=== PATIENT | male | born 1945 | race Caucasian/White ===

== ENCOUNTER → 2016-07-13 | Outpatient (CLI) | payer MEDICARE | END | disposition home or self-care (01) | LOC: PCVCIMAG 13:43 | PROVIDERS: ATTEND Internal Medicine | DX: I65.23 Occlusion and stenosis of bilateral carotid arteries (principal); I25.10 Atherosclerotic heart disease of native coronary artery without angina pectoris; E78.5 Hyperlipidemia, unspecified; I10 Essential (primary) hypertension | CPT/HCPCS: 80061; 93005; 93880; G0463 ==

== ENCOUNTER → 2016-11-29 | Outpatient (CLI) | payer MEDICARE | END | disposition home or self-care (01) | LOC: PCVCCLINIC 14:09 | PROVIDERS: ATTEND Internal Medicine | DX: I25.10 Atherosclerotic heart disease of native coronary artery without angina pectoris (principal); I10 Essential (primary) hypertension; I65.23 Occlusion and stenosis of bilateral carotid arteries; E78.5 Hyperlipidemia, unspecified; J43.1 Panlobular emphysema; Z88.0 Allergy status to penicillin; Z88.5 Allergy status to narcotic agent; Z88.8 Allergy status to other drugs, medicaments and biological substances; Z79.82 Long term (current) use of aspirin; Z79.899 Other long term (current) drug therapy; Z87.891 Personal history of nicotine dependence | CPT/HCPCS: 80061; 93005; G0463 ==

== ENCOUNTER → 2017-05-23 | Outpatient (CLI) | payer MEDICARE | END | disposition home or self-care (01) | LOC: PCVCIMAG 13:11 | DX: I65.23 Occlusion and stenosis of bilateral carotid arteries (principal); I25.10 Atherosclerotic heart disease of native coronary artery without angina pectoris; I10 Essential (primary) hypertension; E78.5 Hyperlipidemia, unspecified; J43.1 Panlobular emphysema; Z87.891 Personal history of nicotine dependence; Z79.899 Other long term (current) drug therapy; Z88.0 Allergy status to penicillin | CPT/HCPCS: 80061; 93005; 93880; G0463 ==

== ENCOUNTER → 2017-11-22 | Outpatient (CLI) | payer MEDICARE | END | disposition home or self-care (01) | LOC: PCVCCLINIC 13:54 | PROVIDERS: ATTEND Internal Medicine | DX: I25.10 Atherosclerotic heart disease of native coronary artery without angina pectoris (principal); E78.5 Hyperlipidemia, unspecified; I10 Essential (primary) hypertension; I65.23 Occlusion and stenosis of bilateral carotid arteries; J43.1 Panlobular emphysema; Z87.891 Personal history of nicotine dependence; Z79.82 Long term (current) use of aspirin; Z79.899 Other long term (current) drug therapy | CPT/HCPCS: 80061; 93005; G0463 ==

== ENCOUNTER → 2018-05-24 | Outpatient (CLI) | payer MEDICARE ==
--- NOTE | 2018-05-24 11:28 | PCVCIMAG ---
APPROVED REPORT Indications Stenosis History of Smoking Risk Factors Hypertension: Diabetes Doppler Spectral Velocity Analysis PSV / EDVPSV / EDV ECA (R) 131 / 16 cm/sECA (L) 224 / 37 cm/s dICA (R) 93 / 32 cm/sdICA (L) 102 / 27 cm/s Tra (R) 90 / 19 cm/smICA (L) 86 / 24 cm/s pICA (R) 145 / 31 cm/spICA (L) 122 / 25 cm/s Bulb (R) 123 / 25 cm/sBulb (L) 157 / 30 cm/s dCCA (R) 57 / 14 cm/sdCCA (L) 54 / 15 cm/s mCCA (R) 41 / 11 cm/smCCA (L) 67 / 15 cm/s Vert (R) 52 / 12 cm/sVert (L) 42 / 8 cm/s ICA/CCA 2.54ICA/CCA 2.26 Basic Measurements Blood Pressure: Pulses: Right Left RightLeft Brachial(Sitting) 128/39ylVv967/70mmHgTemporal Real Time B-Mode Imaging Vert. (R)AntegradeVert. (L)Antegrade Findings The right carotid bulb has moderate calcified plaque. The right proximal internal carotid artery shows 40-50% stenosis. The right common carotid artery shows <40% stenosis. The right external carotid artery shows <50% stenosis. The left carotid bulb has moderate plaque. The left proximal internal carotid artery shows 40-50% stenosis. The left common carotid artery shows no significant stenosis. The left external carotid artery shows >50% stenosis. Conclusion 1. Right internal carotid artery stenosis (40-50%). 2. Left internal carotid artery stenosis (40-50%). 3. Antegrade vertebral flow. Similar to June 2016
== END | disposition home or self-care (01) ==
LOC: PCVCIMAG 11:52
PROVIDERS: ATTEND Internal Medicine
DX: I65.23 Occlusion and stenosis of bilateral carotid arteries (principal); I10 Essential (primary) hypertension; E11.9 Type 2 diabetes mellitus without complications; I25.10 Atherosclerotic heart disease of native coronary artery without angina pectoris; E78.5 Hyperlipidemia, unspecified; J43.1 Panlobular emphysema; E78.00 Pure hypercholesterolemia, unspecified; F17.210 Nicotine dependence, cigarettes, uncomplicated; Z79.84 Long term (current) use of oral hypoglycemic drugs
CPT/HCPCS: 36415; 80061; 93005; 93880; G0463

== ENCOUNTER → 2018-11-28 | Outpatient (CLI) | payer MEDICARE ==
--- NOTE | 2018-11-28 12:19 | PCVCIMAG ---
APPROVED REPORT Imaging Protocol: Rest Tc-99m/Stress Tc-99m 1 day Study performed: 11/28/2018 08:59:44 Indication: CAD Patient Location: Out-Patient Stress Nurse: Klaudia Quigley RN [place] Tech:Yoana Jo [facility] Ht: 5 ft 7 in Wt: 165 lbs BSA: 1.86 m2 HR: 97 bpm BP: 141/91 mmHg BMI: 25.8 Rhythm: Sinus Rhythm, Incomplete Right Bundle Branch Block Medical History Medical History: Age, PCI 2005, HLP, HTN, CVD, COPD, CAD, Current Smoker, DM Medications: Amlodipine, ASA, Chorthalidone, Lisinopril, Metoprolol, Crestor, Albuterol, Symbicort, Metformin, DuoNeb Allergies: Many - none relevant to this exam. Cardiac Risk Factors: Age Previous Cardiac Procedures: 2005 - PCI Pretest Chest Pain Characteristics: No chest pain Exercise History: Indeterminate Meds Held (24 hrs): Metoprolol Resting Data Rest SPECT myocardial perfusion imaging was performed in supine position 45 minutes following the intravenous injection of 10.4 mCi of Tc-99m Sestamibi. Time of rest injection: 0950 Date: 11/28/2018 Administration Route: IV Administration Site: Right AC Exercise Stress At peak stress, the patient was injected intravenously with 34.3mCi of Tc-99m Sestamibi. Time of stress injection: 1010 Date: 11/28/2018 Administration Route: IV Administration Site: Right AC Patient continued to exercise for 1 minute(s). Gated Stress SPECT was performed 45 minutes after stress injection. The images were gated to evaluate regional wall motion and calculate left ventricular ejection fraction. Stress Test Details Stress Test: Exercise stress testing was performed using a Austyn protocol. HRMax Heart Rate (APMHR): 149 bpm Resting HR: 97 bpmTarget HR (85% APMHR): 126 bpm Max HR Achieved: 134 bpm % of APMHR: 89 Recovery HR: 94 bpm HR response to stress: Normal HR response to stress BP Resting BP: 141/71 mmHg Max BP: 210/84 mmHg Recovery BP: 163/68 mmHg BP response to stress: Normal blood pressure response to stress. ECG Resting ECG: Sinus Rhythm, Incomplete Right Bundle Branch Block Stress ECG: Sinus Tachycardia, Incomplete Right Bundle Branch Block ST Change: None Maximum ST Deviation: 0 mm Arrhythmia: VPC's Recovery ECG: Sinus Rhythm, Incomplete Right Bundle Branch Block Recovery ST Change: Normal Recovery ST Deviation: 0 mm Recovery Arrhythmia: None Clinical Reason for Termination: Maximal effort Stress Symptoms: Dyspnea Exercise duration: 7 min 1 sec Exercise capacity: 7.00 METs Overall Exercise Capacity for Age: Average Scale: Active Angina Score: None Symptoms resolved during recovery. Stress ECG Conclusion ECG: Non-ischemic Clinical: Non-ischemic Calle Treadmill Score is 7.0 which is Low risk. Study Quality Study: Good Study Data Post stress, the left ventricular ejection was 74%.. SSS: 1 SRS: 5 SDS: 0 TID = 0.50. Perfusion No evidence of stress induced ischemia or prior myocardial infarction. Wall Motion Normal left ventricular size and function with no regional wall motion abnormalities. Nuclear Conclusion No evidence of stress induced ischemia or prior myocardial infarction. Normal left ventricular size and function with no regional wall motion abnormalities. Post stress, the left ventricular ejection was 74%. No prior study available for comparison. Interpreted by: Americo Wiggins MD Electronically Approved: 11/28/2018 11:33:39 <Conclusion> ECG: Non-ischemic Clinical: Non-ischemic
== END ==
LOC: PCVCIMAG 08:41
PROVIDERS: ATTEND Internal Medicine
DX: I25.10 Atherosclerotic heart disease of native coronary artery without angina pectoris (principal); I10 Essential (primary) hypertension; E78.5 Hyperlipidemia, unspecified; I65.23 Occlusion and stenosis of bilateral carotid arteries; E11.9 Type 2 diabetes mellitus without complications; J43.1 Panlobular emphysema; Z72.0 Tobacco use
CPT/HCPCS: 78452; 80061; 93017; A9500; G0463